=== PATIENT | male | born 1985 | race Caucasian/White ===

== ENCOUNTER 2018-02-16 15:39 | Emergency (ER) | payer BC, OTHER ==
--- NOTE | 2018-02-16 16:03 | EDM.PDOC ---
ED HPI GENERAL MEDICAL PROBLEM - General Chief Complaint: Genitourinary Problem Stated Complaint: MEDICAL CLEARANCE Time Seen by Provider: 02/16/18 16:00 Source of Information: Reports: Patient History Limitations: Reports: No Limitations - History of Present Illness INITIAL COMMENTS - FREE TEXT/NARRATIVE: HISTORY AND PHYSICAL: History of present illness: Patient is a 32-year-old male accompanied by global chief experience officer herewith complaint of testicular swelling and blood in his urine. He states he had a left inguinal hernia repair that became infected 2 years ago requiring a revision. He reports his symptoms are similar to then. He states he has had the testicular swelling and pain on the left side of his back on and off for the past week. He states he's had tactile fevers and chills. He denies any nausea, vomiting, diarrhea. Patient is sexually active. Review of systems: As per history of present illness and below otherwise all systems reviewed and negative. Past medical history: As per history of present illness and as reviewed below otherwise noncontributory. Surgical history: As per history of present illness and as reviewed below otherwise noncontributory. Social history: No reported history of drug or alcohol abuse. Family history: As per history of present illness and as reviewed below otherwise noncontributory. Physical exam: General: Patient sitting comfortably in no acute distress and nontoxic appearing HEENT: Atraumatic, normocephalic, pupils reactive, negative for conjunctival pallor or scleral icterus, mucous membranes moist, throat clear, neck supple, nontender, trachea midline. No meningeal signs. Lungs: Clear to auscultation, breath sounds equal bilaterally, chest nontender. Heart: S1S2, regular, negative for clicks, rubs, or overt murmur. Abdomen: Soft, nondistended, nontender. Negative for masses or hepatosplenomegaly. Negative for costovertebral tenderness. Pelvis: Stable nontender. Genitourinary: pain to palpation of left testicle and left inguinal area. Minimal swelling of the left testicle. No erythema or warmth. Normal cremaster reflex. Rectal: Deferred. Extremities: Atraumatic, negative for cords or calf pain. Neurovascular unremarkable. Neuro: Awake, alert, oriented. Cranial nerves II through XII unremarkable. Cerebellum unremarkable. Motor and sensory unremarkable throughout. Exam nonfocal. Notes: Diagnostics: CBC, CMP, UA, UC, Scrotal US Therapeutics: Ceftriaxone 250mg IM Prescriptions: Doxycycline 100mg BID Impression: Left testicular pain and swelling, possible epididymo-orchitis Plan: 1. Take antibiotic as directed 2. Follow up with urology or primary care provider 3. Return to ED as needed as discussed Definitive disposition and diagnosis as appropriate pending reevaluation and review of above. left testicle Pain Score (Numeric/FACES): 6 - Related Data Allergies Allergy/AdvReac Type Severity Reaction Status Date / Time No Known Allergies Allergy Verified 02/16/18 15:47 Home Meds: Home Meds Doxycycline [Vibramycin] 100 mg PO BID 10 Days #20 tab 02/16/18 [Rx] Past Medical History - Past Health History Medical/Surgical History: Denies Medical/Surgical History Neurological History: Reports: Seizure - Past Surgical History GI Surgical History: Reports: Hernia, Inguinal Other GI Surgeries/Procedures: Inguinal hernia revision Social & Family History - Family History Family Medical History: Noncontributory Oncologic: Reports: Breast, Other (See Below) Other Oncologic Family History: Testicular - Tobacco Use Smoking Status *Q: Current Every Day Smoker Years of Tobacco use: 5 Packs/Tins Daily: 0.5 - Caffeine Use Caffeine Use: Reports: Soda - Alcohol Use Days Per Week of Alcohol Use: 2 Number of Drinks Per Day: 2 Total Drinks Per Week: 4 - Recreational Drug Use Recreational Drug Use: Yes Drug Use in Last 12 Months: No Recreational Drug Type: Reports: Marijuana/Hashish Recreational Drug Use Frequency: Socially ED ROS GENERAL - Review of Systems Review Of Systems: ROS reveals no pertinent complaints other than HPI. ED EXAM, GI/ABD - Physical Exam Exam: See Below (see dictation) Course - Vital Signs Last Recorded V/S: Last Vital Signs Temp 36.6 C 02/16/18 15:45 Pulse 73 02/16/18 15:45 Resp 16 02/16/18 15:45 BP 134/91 H 02/16/18 15:45 Pulse Ox 96 02/16/18 15:45 - Orders/Labs/Meds Orders: Active Orders 24 hr Category Date Time Status Scrotal Duplex Ltd [US] Routine Exams 02/16/18 Taken Testicular US [Scrotum and Contents] [US] Stat Exams 02/16/18 16:11 Taken CHLAMYDIA AND GONORRHEA BY TMA Stat Lab 09/25/18 17:19 Ordered CULTURE URINE [RM] Stat Lab 02/16/18 17:00 Received Labs: Laboratory Tests 02/16/18 02/16/18 02/16/18 Range/Units 16:22 16:22 17:00 WBC 10.94 (4.0-11.0) K/uL RBC 5.38 (4.50-5.90) M/uL Hgb 16.2 (13.0-17.0) g/dL Hct 47.0 (38.0-50.0) % MCV 87.4 (80.0-98.0) fL MCH 30.1 (27.0-32.0) pg MCHC 34.5 (31.0-37.0) g/dL RDW Std Deviation 41.2 (28.0-62.0) fl RDW Coeff of Malini 13 (11.0-15.0) % Plt Count 317 (150-400) K/uL MPV 9.60 (7.40-12.00) fL Neut % (Auto) 69.8 (48.0-80.0) % Lymph % (Auto) 21.0 (16.0-40.0) % [place] % (Auto) 7.5 (0.0-15.0) % Eos % (Auto) 1.2 (0.0-7.0) % Baso % (Auto) 0.5 (0.0-1.5) % Neut # (Auto) 7.6 H (1.4-5.7) K/uL Lymph # (Auto) 2.3 (0.6-2.4) K/uL [place] # (Auto) 0.8 (0.0-0.8) K/uL Eos # (Auto) 0.1 (0.0-0.7) K/uL Baso # (Auto) 0.1 (0.0-0.1) K/uL Nucleated RBC % 0.0 /100WBC Nucleated RBCs # 0 K/uL Sodium 137 (136-148) mmol/L Potassium 4.5 (3.5-5.1) mmol/L Chloride 102 (98-107) mmol/L Carbon Dioxide 28.0 (21.0-32.0) mmol/L BUN 17 (7.0-18.0) mg/dL Creatinine 0.9 (0.8-1.3) mg/dL Est Cr Clr Drug Dosing 116.25 mL/min Estimated GFR (MDRD) > 60.0 ml/min Glucose 98 (74-106) mg/dL Calcium 9.1 (8.5-10.1) mg/dL Total Bilirubin 0.3 (0.2-1.0) mg/dL AST 16 (15-37) IU/L ALT 24 (14-63) IU/L Alkaline Phosphatase 68 (46-116) U/L Total Protein 7.4 (6.4-8.2) g/dL Albumin 3.8 (3.4-5.0) g/dL Globulin 3.6 H (2.0-3.5) g/dL Albumin/Globulin Ratio 1.1 L (1.3-2.8) Urine Color YELLOW Urine Appearance CLEAR Urine pH 6.0 (5.0-8.0) Ur Specific [place] >= 1.030 (1.001-1.035) Urine Protein NEGATIVE (NEGATIVE) mg/dL Urine Glucose (UA) NEGATIVE (NEGATIVE) mg/dL Urine Ketones NEGATIVE (NEGATIVE) mg/dL Urine Occult Blood NEGATIVE (NEGATIVE) Urine Nitrite NEGATIVE (NEGATIVE) Urine Bilirubin NEGATIVE (NEGATIVE) Urine Urobilinogen 0.2 (<2.0) EU/dL Ur Leukocyte Esterase NEGATIVE (NEGATIVE) Urine RBC 0-1 (0-2/HPF) Urine WBC 0-1 (0-5/HPF) Ur Epithelial Cells RARE (NONE-FEW) Urine Bacteria RARE (NEGATIVE) Departure - Departure Time of Disposition: 17:56 Disposition: Home, Self-Care 01 Condition: Good Clinical Impression: Testicular pain, left, Epididymo-orchitis, acute - Discharge Information Referrals: PCP,None [Primary Care Provider] - Forms: ED Department Discharge Additional Instructions: The following information is given to patients seen in the emergency department who are being discharged to home. This information is to outline your options for follow-up care. We provide all patients seen in our emergency department with a follow-up referral. The need for follow-up, as well as the timing and circumstances, are variable depending upon the specifics of your emergency department visit. If you don't have a primary care physician on staff, we will provide you with a referral. We always advise you to contact your personal physician following an emergency department visit to inform them of the circumstance of the visit and for follow-up with them and/or the need for any referrals to a consulting specialist. The emergency department will also refer you to a specialist when appropriate. This referral assures that you have the opportunity for follow-up care with a specialist. All of these measure are taken in an effort to provide you with optimal care, which includes your follow-up. Under all circumstances we always encourage you to contact your private physician who remains a resource for coordinating your care. When calling for follow-up care, please make the office aware that this follow-up is from your recent emergency room visit. If for any reason you are refused follow-up, please contact the [facility] Emergency Department at and asked to speak to the emergency department charge nurse. [facility] - Urology [address] [place] [id number] [facility] [address] [place] [id number] 1. Take antibiotic as directed 2. Follow up with urology or primary care provider 3. Return to ED as needed as discussed - My Orders Last 24 Hours: My Active Orders 02/16/18 16:11 Testicular US [Scrotum and Contents] [US] Stat 02/16/18 17:00 CULTURE URINE [RM] Stat 02/16/18 17:19 CHLAMYDIA AND GONORRHEA BY TMA Stat - Assessment/Plan Last 24 Hours: My Active Orders 02/16/18 16:11 Testicular US [Scrotum and Contents] [US] Stat 02/16/18 17:00 CULTURE URINE [RM] Stat 02/16/18 17:19 CHLAMYDIA AND GONORRHEA BY TMA Stat
[2018-02-16 16:48] LABS: CHLORIDE,CL 102 mmol/L (98-107); SODIUM,NA 137 mmol/L (136-148)
[2018-02-16] MEDS ORDERED: cefTRIAXone 250 MG in Lidocaine 1% 0.9 ML IM ONE (17:52)
--- NOTE | 2018-02-17 09:35 | US ---
EXAM DATE: 02/16/18 PATIENT'S AGE: 32 Patient: JAIME CRAMER Facility: [place], [place] Site . Site : 1985 Study: US Testicle Bilateral [id number]/25/2018 4:57:24 PM Ordering Physician: Doctor Kee Final Report: INDICATION: Left testicular pain TECHNIQUE: Ultrasound of the scrotum and contents. Sonographic nguyen scale images were obtained with spectral and color Doppler waveform and spectral waveform analysis of the testicles. COMPARISON: FINDINGS: Right testicle: 3.4 x 1.6 x 2.6 cm. Normal echotexture. No masses. Microlithiasis. Normal arterial and venous blood flow using Doppler and spectral waveform analysis. Left testicle: 3.9 x 1.9 x 2.5 cm. Normal echotexture. No masses. Microlithiasis. Normal arterial and venous blood flow using Doppler and spectral waveform analysis. Epididymis: Unremarkable bilaterally. Normal blood flow. Other: No sign of hydrocele. scrotal wall is normal. IMPRESSION: Bilateral testicular microlithiasis. Recommend followup in 6 months. No masses or torsion. No hydroceles Dictated by Kian Cuba MD @ Feb 16 2018 5:31PM (Electronic Signature) Report Signed by Proxy. MIKAL
--- NOTE | 2018-02-17 09:35 | US ---
EXAM DATE: 02/16/18 PATIENT'S AGE: 32 Patient: JAIME CRAMER Facility: [place], [place] Site . Site : 1985 Study: US Testicle Bilateral [id number]/25/2018 4:57:24 PM Ordering Physician: Doctor Kee Final Report: INDICATION: Left testicular pain TECHNIQUE: Ultrasound of the scrotum and contents. Sonographic nguyen scale images were obtained with spectral and color Doppler waveform and spectral waveform analysis of the testicles. COMPARISON: FINDINGS: Right testicle: 3.4 x 1.6 x 2.6 cm. Normal echotexture. No masses. Microlithiasis. Normal arterial and venous blood flow using Doppler and spectral waveform analysis. Left testicle: 3.9 x 1.9 x 2.5 cm. Normal echotexture. No masses. Microlithiasis. Normal arterial and venous blood flow using Doppler and spectral waveform analysis. Epididymis: Unremarkable bilaterally. Normal blood flow. Other: No sign of hydrocele. scrotal wall is normal. IMPRESSION: Bilateral testicular microlithiasis. Recommend followup in 6 months. No masses or torsion. No hydroceles Dictated by Kian Cuab MD @ Feb 16 2018 5:31PM (Electronic Signature) Report Signed by Proxy. MIKAL
== END 2018-02-16 18:35 | disposition home or self-care (01) ==
LOC: MW.ED 15:39
DX: N45.3 Epididymo-orchitis (principal); F17.210 Nicotine dependence, cigarettes, uncomplicated
CPT/HCPCS: 36415; 76870; 80053; 81001; 85025; 87086; 87491; 87591; 93976; 96372; 99284; J0696; 93005

== ENCOUNTER 2018-02-16 20:40 | Emergency (ER) | payer BC ==
--- NOTE | 2018-02-16 21:01 | EDM.PDOC ---
ED HPI GENERAL MEDICAL PROBLEM - General Chief Complaint: General Stated Complaint: LOSS OF CONCNESS Time Seen by Provider: 02/16/18 21:01 Source of Information: Reports: Patient History Limitations: Reports: No Limitations - History of Present Illness INITIAL COMMENTS - FREE TEXT/NARRATIVE: HISTORY AND PHYSICAL: History of present illness: Patient is a 32-year-old male with them by safety security officer with concern of head injury. Patient states that he is unaware exactly what happened. Officer states that they were doing the rounds at about 8:30 and when they got to the cell they found patient face down on the floor. He reports that he and the nurse turned patient over and state he was "out of it" and stiff. They are uncertain how long patient was down. Patient is complaining of a headache now. He denies neck or any other pain. He was seen earlier today regarding a left testicular pain, labs are that time were unremarkable. Patient was given IM ceftriaxone and prescription for doxycycline to treat a presumptive epidiymo- orchitis. Review of systems: As per history of present illness and below otherwise all systems reviewed and negative. Past medical history: As per history of present illness and as reviewed below otherwise noncontributory. Surgical history: As per history of present illness and as reviewed below otherwise noncontributory. Social history: No reported history of drug or alcohol abuse. Family history: As per history of present illness and as reviewed below otherwise noncontributory. Physical exam: General: Patient sitting comfortably in no acute distress and nontoxic appearing HEENT: Atraumatic, normocephalic, pupils reactive, negative for conjunctival pallor or scleral icterus, mucous membranes moist, throat clear, neck supple, nontender, trachea midline. No meningeal signs. Lungs: Clear to auscultation, breath sounds equal bilaterally, chest nontender. Heart: S1S2, regular, negative for clicks, rubs, or overt murmur. Abdomen: Soft, nondistended, nontender. Negative for masses or hepatosplenomegaly. Negative for costovertebral tenderness. Pelvis: Stable nontender. Genitourinary: Deferred. Rectal: Deferred. Extremities: Atraumatic, negative for cords or calf pain. Neurovascular unremarkable. Neuro: Awake, alert, oriented. Cranial nerves II through XII unremarkable. Cerebellum unremarkable. Motor and sensory unremarkable throughout. Exam nonfocal. Notes: Diagnostics: Head and cervical spine CT Therapeutics: None Prescriptions: Impression: Head injury, concussion Plan: 1. Motrin or tylenol as needed for headache 2. Follow up with primary care provider 3. Return to ED as needed as discussed Definitive disposition and diagnosis as appropriate pending reevaluation and review of above. Treatments EPIC PRELUDE ANALYST: Reports: Cervical Collar, Spinal Immobilization head Pain Score (Numeric/FACES): 7 - Related Data Allergies Allergy/AdvReac Type Severity Reaction Status Date / Time No Known Allergies Allergy Verified 02/16/18 20:50 Home Meds: Home Meds Doxycycline [Vibramycin] 100 mg PO BID 10 Days #20 tab 02/16/18 [Rx] Past Medical History - Past Health History Medical/Surgical History: Denies Medical/Surgical History Genitourinary History: Reports: Other (See Below) Other Genitourinary History: orchitis Neurological History: Reports: Seizure - Past Surgical History GI Surgical History: Reports: Hernia, Inguinal Other GI Surgeries/Procedures: Inguinal hernia revision Social & Family History - Family History Family Medical History: Noncontributory Oncologic: Reports: Breast, Other (See Below) Other Oncologic Family History: Testicular - Tobacco Use Smoking Status *Q: Current Every Day Smoker Years of Tobacco use: 5 Packs/Tins Daily: 1 - Caffeine Use Caffeine Use: Reports: Soda - Recreational Drug Use Recreational Drug Use: Yes Drug Use in Last 12 Months: No ED ROS GENERAL - Review of Systems Review Of Systems: ROS reveals no pertinent complaints other than HPI. ED EXAM, GENERAL - Physical Exam Exam: See Below (see dictation) Course - Vital Signs Last Recorded V/S: Last Vital Signs Temp 36.9 C 02/16/18 20:46 Pulse 76 02/16/18 20:46 Resp 18 02/16/18 20:46 BP 119/83 02/16/18 20:46 Pulse Ox 97 02/16/18 20:46 - Orders/Labs/Meds Orders: Active Orders 24 hr Category Date Time Status EKG Documentation Completion [RC] STAT Care 02/16/18 20:54 Active Cervical Spine wo Cont [CT] Stat Exams 02/16/18 21:01 Taken Head wo Cont [CT] Stat Exams 02/16/18 21:01 Taken Departure - Departure Time of Disposition: 21:50 Disposition: Home, Self-Care 01 Condition: Good Clinical Impression: Head injury, Concussion - Discharge Information Forms: ED Department Discharge Additional Instructions: The following information is given to patients seen in the emergency department who are being discharged to home. This information is to outline your options for follow-up care. We provide all patients seen in our emergency department with a follow-up referral. The need for follow-up, as well as the timing and circumstances, are variable depending upon the specifics of your emergency department visit. If you don't have a primary care physician on staff, we will provide you with a referral. We always advise you to contact your personal physician following an emergency department visit to inform them of the circumstance of the visit and for follow-up with them and/or the need for any referrals to a consulting specialist. The emergency department will also refer you to a specialist when appropriate. This referral assures that you have the opportunity for follow-up care with a specialist. All of these measure are taken in an effort to provide you with optimal care, which includes your follow-up. Under all circumstances we always encourage you to contact your private physician who remains a resource for coordinating your care. When calling for follow-up care, please make the office aware that this follow-up is from your recent emergency room visit. If for any reason you are refused follow-up, please contact the [facility] Emergency Department at and asked to speak to the emergency department charge nurse. [facility] [address] [place] [address] [place] [address] 1. Motrin or tylenol as needed for headache 2. Follow up with primary care provider 3. Return to ED as needed as discussed - My Orders Last 24 Hours: My Active Orders 02/16/18 21:01 Cervical Spine wo Cont [CT] Stat Head wo Cont [CT] Stat - Assessment/Plan Last 24 Hours: My Active Orders 02/16/18 21:01 Cervical Spine wo Cont [CT] Stat Head wo Cont [CT] Stat
--- NOTE | 2018-02-17 11:19 | CT ---
EXAM DATE: 02/16/18 PATIENT'S AGE: 32 Patient: JAIME CRAMER Facility: [place], [place] Site . Site : 1985 Study: CT Spine Cervical [id number]/25/2018 9:27:55 PM Ordering Physician: Doctor Kee Final Report: INDICATION: Status post fall with loss of consciousness. COMPARISON: None available TECHNIQUE: CT examination of the cervical spine is performed with spiral technique without contrast using spiral technique. 2 mm thick axial, sagittal and coronal reconstructions were made. Please note that all CT scans at this facility use dose modulation, iterative reconstruction, and/or weight-based dosing when appropriate to reduce radiation dose to as low as reasonably achievable. FINDINGS: : There is no sign of fracture or subluxation. The cervical vertebral bodies are normal in height and are in anatomic alignment. There is no sign of prevertebral soft tissue swelling. There is mild disc degenerative disease at C6-7 with moderate anterior osteophyte formation. There is mild bilateral foraminal stenosis at this level from uncovertebral joint hypertrophy. The rest of the cervical intervertebral discs are normal in height. The airway structures are normal in appearance. The visualized skull base is normal in appearance. Brain detail is extremely limited by the use of bone technique, but no gross abnormality is seen. The apices of the lungs are clear. IMPRESSION: NO SIGN OF ACUTE INJURY TO THE CERVICAL SPINE. MILD C6-7 DISC DEGENERATIVE DISEASE. Please note that all CT scans at this facility use dose modulation, iterative reconstruction, and/or weight-based dosing when appropriate to reduce radiation dose to as low as reasonably achievable. Dictated by Rodrigo Escobar MD @ Feb 16 2018 9:42PM (Electronic Signature) Report Signed by Proxy. [facility] MED[facility] CENTERElmira
--- NOTE | 2018-02-17 11:20 | CT ---
EXAM DATE: 02/16/18 PATIENT'S AGE: 32 Patient: JAIME CRAMER Facility: [place], [place] Site . Site : 1985 Study: CT Head [id number]/25/2018 9:30:40 PM Ordering Physician: Doctor Kee Final Report: INDICATION: Fall with loss of consciousness TECHNIQUE: CT head without contrast. COMPARISON: None. FINDINGS: CSF spaces: Within normal limits for age. Brain parenchyma: The nguyen-white differentiation is normal. No sign of mass, hemorrhage, or midline shift. Skull base and calvarium: Dense mucosal thickening is present in the right maxillary sinus. The visualized orbits are grossly unremarkable. No skull fractures. IMPRESSION: No sign of acute injury. There is right maxillary inflammatory sinus disease. Please note that all CT scans at this facility use dose modulation, iterative reconstruction, and/or weight-based dosing when appropriate to reduce radiation dose to as low as reasonably achievable. Dictated by Manuel Higgins MD @ Feb 16 2018 9:31PM (Electronic Signature) Report Signed by Proxy. MTDD
== END 2018-02-16 22:05 | disposition home or self-care (01) ==
LOC: MW.ED 20:40
DX: S06.0X9A Concussion with loss of consciousness of unspecified duration, initial encounter (principal); F17.210 Nicotine dependence, cigarettes, uncomplicated; X58.XXXA Exposure to other specified factors, initial encounter
CPT/HCPCS: 70450; 70450-26; 72125; 72125-26; 99284-25

== ENCOUNTER 2018-02-17 14:01 | Emergency (ER) | payer BC, OTHER ==
--- NOTE | 2018-02-17 14:13 | EDM.PDOC ---
ED HPI GENERAL MEDICAL PROBLEM - General Chief Complaint: Chest Pain Stated Complaint: CHEST PAIN Time Seen by Provider: 02/17/18 14:02 Source of Information: Reports: Patient History Limitations: Reports: No Limitations - History of Present Illness INITIAL COMMENTS - FREE TEXT/NARRATIVE: HISTORY AND PHYSICAL: History of present illness: Patient is a 32-year-old male who presents to the emergency room with complaints of anterior left sided chest pain. He was seen in our emergency room on 2 separate occasions yesterday, 02/16/18, initially for left sided testicular pain and swelling which he was treated with Rocephin and doxycycline (RX). The second ER visit, he stated he had fallen and hit his head. He received a CT scan of head and neck, which was within normal limits and discharged to return with law enforcement. He denies any fever, chills, shortness of breath or cough. Denies any abdominal pain, nausea, vomiting, diarrhea or constipation. NO medical history of health problems. No family history of heart disease. Review of systems: As per history of present illness and below otherwise all systems reviewed and negative. Past medical history: As per history of present illness and as reviewed below otherwise noncontributory. Surgical history: As per history of present illness and as reviewed below otherwise noncontributory. Social history: No reported history of drug or alcohol abuse. Family history: As per history of present illness and as reviewed below otherwise noncontributory. Physical exam: General: Developed and well-nourished 32-year-old male. Alert and oriented. Nontoxic appearing and in no acute distress. HEENT: Atraumatic, normocephalic, pupils equal and reactive bilaterally, negative for conjunctival pallor or scleral icterus, mucous membranes moist, throat clear, neck supple, nontender, trachea midline. No drooling or trismus noted. No meningeal signs Lungs: Clear to auscultation, breath sounds equal bilaterally, chest pain reproducable with palpation of the left upper anterior chest. Heart: S1S2, regular rate and rhythm without overt murmur Abdomen: Soft, nondistended, nontender. Negative for masses or hepatosplenomegaly. Negative for costovertebral tenderness. Pelvis: Stable nontender. Genitourinary: Deferred. Rectal: Deferred. Skin: Intact, warm, dry. No lesions or rashes noted. Extremities: Atraumatic, negative for cords or calf pain. Neurovascular unremarkable. Neuro: Awake, alert, oriented. Cranial nerves II through XII unremarkable. Cerebellum unremarkable. Motor and sensory unremarkable throughout. Exam nonfocal. Notes: EKG shows a sinus rhythm with a rate of 84. As this patient was seen earlier yesterday, Dr. Segura was involved in this case. This case was discussed with him, will do an EKG at this time. VSS. Patient d/c to custody of law enforcement. Diagnostics: EKG Therapeutics: None Prescription: None Impression: Encounter for medical screening Nonspecific Chest Pain Plan: 1. Tylenol and/or ibuprofen as needed for pain management. 2. Follow-up with your primary care provider in the next 1-2 days. Return to the ED as needed and as discussed. Definitive disposition and diagnosis as appropriate pending reevaluation and review of above. Onset: Today Duration: Hour(s): Location: Reports: Chest Middle Chest Pain Score (Numeric/FACES): 6 - Related Data Allergies Allergy/AdvReac Type Severity Reaction Status Date / Time No Known Allergies Allergy Verified 02/16/18 20:50 Home Meds: Home Meds Doxycycline [Vibramycin] 100 mg PO BID 10 Days #20 tab 02/16/18 [Rx] Past Medical History - Past Health History Medical/Surgical History: Denies Medical/Surgical History Genitourinary History: Reports: Other (See Below) Other Genitourinary History: orchitis Neurological History: Reports: Seizure - Past Surgical History GI Surgical History: Reports: Hernia, Inguinal Other GI Surgeries/Procedures: Inguinal hernia revision Social & Family History - Family History Family Medical History: Noncontributory Oncologic: Reports: Breast, Other (See Below) Other Oncologic Family History: Testicular - Caffeine Use Caffeine Use: Reports: Soda ED ROS GENERAL - Review of Systems Review Of Systems: ROS reveals no pertinent complaints other than HPI. ED EXAM, GENERAL - Physical Exam Exam: See Below (See dictation) Course - Vital Signs Last Recorded V/S: Last Vital Signs Temp 98.3 F 02/17/18 14:07 Pulse 67 02/17/18 14:07 Resp 18 02/17/18 14:07 BP 137/86 02/17/18 14:07 Pulse Ox 99 02/17/18 14:07 - Orders/Labs/Meds Orders: Active Orders 24 hr Category Date Time Status EKG Documentation Completion [RC] STAT Care 02/17/18 14:05 Active Departure - Departure Time of Disposition: 14:20 Disposition: Home, Self-Care 01 Clinical Impression: Nonspecific chest pain Instructions: Nonspecific Chest Pain Forms: ED Department Discharge Additional Instructions: The following information is given to patients seen in the emergency department who are being discharged to home. This information is to outline your options for follow-up care. We provide all patients seen in our emergency department with a follow-up referral. The need for follow-up, as well as the timing and circumstances, are variable depending upon the specifics of your emergency department visit. If you don't have a primary care physician on staff, we will provide you with a referral. We always advise you to contact your personal physician following an emergency department visit to inform them of the circumstance of the visit and for follow-up with them and/or the need for any referrals to a consulting specialist. The emergency department will also refer you to a specialist when appropriate. This referral assures that you have the opportunity for follow-up care with a specialist. All of these measure are taken in an effort to provide you with optimal care, which includes your follow-up. Under all circumstances we always encourage you to contact your private physician who remains a resource for coordinating your care. When calling for follow-up care, please make the office aware that this follow-up is from your recent emergency room visit. If for any reason you are refused follow-up, please contact the [facility] Emergency Department at and asked to speak to the emergency department charge nurse. [facility] [address] [place] [id number] 1. Tylenol and/or ibuprofen as needed for pain management. 2. Follow-up with your primary care provider in the next 1-2 days. Return to the ED as needed and as discussed. - My Orders Last 24 Hours: My Active Orders 02/17/18 14:05 EKG Documentation Completion [RC] STAT - Assessment/Plan Last 24 Hours: My Active Orders 02/17/18 14:05 EKG Documentation Completion [RC] STAT
== END 2018-02-17 14:30 | disposition home or self-care (01) ==
LOC: MW.ED 14:01
DX: R07.9 Chest pain, unspecified (principal)
CPT/HCPCS: 93005; 99285-25

== ENCOUNTER 2019-08-27 00:54 | Emergency (ER) | payer SELFPAY ==
[2019-08-27] MEDS ORDERED: Azithromycin 200 MG/5 ML Susp 15 ML Bottle PO ONE (01:55)
--- NOTE | 2019-08-27 01:57 | EDM.PDOC ---
ED HPI GENERAL MEDICAL PROBLEM - General Chief Complaint: General Stated Complaint: MEDICAL CLEARANCE Time Seen by Provider: 08/27/19 01:20 Source of Information: Reports: Patient History Limitations: Reports: No Limitations - History of Present Illness INITIAL COMMENTS - FREE TEXT/NARRATIVE: Patient states that he has been urinating blood. And is here for medical clearance for incarceration Onset: Today Duration: Day(s): Severity: Mild Improves with: Reports: None Worsens with: Reports: None Associated Symptoms: Reports: No Other Symptoms - Related Data Allergies Allergy/AdvReac Type Severity Reaction Status Date / Time No Known Allergies Allergy Verified 08/27/19 01:21 Home Meds: Home Meds Albuterol [Ventolin HFA] 8 gm .XX ASDIRECTED 08/27/19 [History] Past Medical History - Past Health History Medical/Surgical History: Denies Medical/Surgical History HEENT History: Reports: None Cardiovascular History: Reports: None Respiratory History: Reports: Asthma Genitourinary History: Reports: Other (See Below) Other Genitourinary History: orchitis Musculoskeletal History: Reports: None Neurological History: Reports: Seizure Psychiatric History: Reports: None Endocrine/Metabolic History: Reports: None Hematologic History: Reports: None Immunologic History: Reports: None Oncologic (Cancer) History: Reports: None Dermatologic History: Reports: None - Infectious Disease History Infectious Disease History: Reports: None - Past Surgical History Head Surgeries/Procedures: Reports: None GI Surgical History: Reports: Hernia, Inguinal Other GI Surgeries/Procedures: Inguinal hernia revision Social & Family History - Family History Family Medical History: Noncontributory Oncologic: Reports: Breast, Other (See Below) Other Oncologic Family History: Testicular - Tobacco Use Smoking Status *Q: Current Every Day Smoker Years of Tobacco use: 10 Packs/Tins Daily: 1 - Caffeine Use Caffeine Use: Reports: None - Recreational Drug Use Recreational Drug Use: No ED ROS GENERAL - Review of Systems Review Of Systems: See Below Constitutional: Reports: No Symptoms HEENT: Reports: No Symptoms Respiratory: Reports: No Symptoms Cardiovascular: Reports: No Symptoms Endocrine: Reports: No Symptoms GI/Abdominal: Reports: No Symptoms : Reports: No Symptoms Musculoskeletal: Reports: No Symptoms Skin: Reports: No Symptoms Neurological: Reports: No Symptoms Psychiatric: Reports: No Symptoms ED EXAM, GENERAL - Physical Exam Exam: See Below Exam Limited By: No Limitations General Appearance: Alert, WD/WN, No Apparent Distress Eye Exam: Bilateral Eye: Normal Fundi, Normal Inspection Ear Exam: Bilateral Ear: Auricle Normal, Canal Normal Nose: Normal Inspection Throat/Mouth: Normal Inspection Respiratory/Chest: No Respiratory Distress Cardiovascular: Normal Peripheral Pulses (Male) Exam: No Hernia Back Exam: Normal Inspection Extremities: Normal Inspection Neurological: Alert, Oriented, CN II-XII Intact Psychiatric: Normal Affect Skin Exam: Warm Lymphatic: No Adenopathy Course - Vital Signs Text/Narrative:: Patient states he is urinating blood. UA shows no evidence of bleeding. Patient has GC and chlamydia pending. Last Recorded V/S: Last Vital Signs Temp 97.3 F 08/27/19 01:19 Pulse 83 08/27/19 01:19 Resp 18 08/27/19 01:19 BP 131/91 H 08/27/19 01:19 Pulse Ox 95 08/27/19 01:19 - Orders/Labs/Meds Orders: Active Orders 24 hr Category Date Time Status CHLAMYDIA AND GONORRHEA BY TMA Stat Lab 08/27/19 01:29 Ordered CULTURE URINE [RM] Stat Lab 08/27/19 01:30 Received Labs: Laboratory Tests 08/27/19 Range/Units 01:30 Urine Color YELLOW Urine Appearance SLT CLOUDY Urine pH 6.0 (5.0-8.0) Ur Specific Griffith >= 1.030 (1.001-1.035) Urine Protein 30 H (NEGATIVE) mg/dL Urine Glucose (UA) NEGATIVE (NEGATIVE) mg/dL Urine Ketones TRACE H (NEGATIVE) mg/dL Urine Occult Blood NEGATIVE (NEGATIVE) Urine Nitrite NEGATIVE (NEGATIVE) Urine Bilirubin SMALL H (NEGATIVE) Urine Ictotest NEGATIVE Urine Urobilinogen 0.2 (<2.0) EU/dL Ur Leukocyte Esterase TRACE H (NEGATIVE) Urine RBC 0-2 (0-2/HPF) Urine WBC 20-30 (0-5/HPF) Ur Epithelial Cells RARE (NONE-FEW) Urine Bacteria FEW (NEGATIVE) Urine Mucus LIGHT (NONE-MOD) Departure - Departure Time of Disposition: 01:53 Disposition: Home, Self-Care 01 Clinical Impression: Sexually transmitted disease (STD) - Discharge Information Referrals: PCP,None [Primary Care Provider] - Sepsis Event Note - Evaluation Sepsis Screening Result: No Definite Risk - Focused Exam Vital Signs: Vital Signs Temp Pulse Resp BP Pulse Ox 08/27/19 01:19 97.3 F 83 18 131/91 H 95 Date Exam was Performed: 08/27/19 Time Exam was Performed: 01:51 - My Orders Last 24 Hours: My Active Orders 08/27/19 01:29 CHLAMYDIA AND GONORRHEA BY TMA Stat 08/27/19 01:30 CULTURE URINE [RM] Stat - Assessment/Plan Last 24 Hours: My Active Orders 08/27/19 01:29 CHLAMYDIA AND GONORRHEA BY TMA Stat 08/27/19 01:30 CULTURE URINE [RM] Stat
[2019-08-27] MEDS ORDERED: Azithromycin 250 MG Tab ONE (02:07)
[2019-08-27] MEDS ORDERED: Azithromycin 250 MG Tab PO STA (02:07)
== END 2019-08-27 02:20 ==
LOC: MW.ED 00:54
DX: A64 Unspecified sexually transmitted disease (principal); F17.210 Nicotine dependence, cigarettes, uncomplicated
CPT/HCPCS: 81001; 87086; 87491; 87591; 99283; A9270

== ENCOUNTER 2020-08-17 01:17 | Emergency (ER) | payer OTHER ==
[2020-08-17] MEDS ORDERED: Ketorolac 30 MG/ML SDV IM ONE (01:32)
--- NOTE | 2020-08-17 01:36 | EDM.PDOC ---
ED HPI GENERAL MEDICAL PROBLEM - General Chief Complaint: Lower Extremity Injury/Pain Stated Complaint: SWELLING IN LEFT LEG Time Seen by Provider: 08/17/20 01:22 - History of Present Illness INITIAL COMMENTS - FREE TEXT/NARRATIVE: HISTORY AND PHYSICAL: History of present illness: This is a 34-year-old healthy gentleman who presents ER today complaining of pain to his left upper thigh x1 month. Patient reports that he has been incarcerated for 1 week. Patient reports that since being incarcerated the pain is worsened. Patient reports he has been taking ibuprofen and resting it in senior living without any significant improvement. Patient denies any recent fevers, shakes, chills, nausea, vomiting, diarrhea, dysuria, frequency, urgency. Patient denies any new trauma. Patient reports no heavy lifting or increased exercise while i ncarcerated. Review of systems: As per history of present illness and below otherwise all systems reviewed and negative. Past medical history: As per history of present illness and as reviewed below otherwise noncontributory. Surgical history: As per history of present illness and as reviewed below otherwise noncontributory. Social history: No reported history of drug or alcohol abuse. Family history: As per history of present illness and as reviewed below otherwise noncontributory. Physical exam: This patient was seen and evaluated during the 2019 SARS-CoV-2 novel coronavirus pandemic period. Community viral transmission is ongoing at time of this encounter and the emergency department is operating under pandemic response procedures. Constitutional: Patient is oriented to person, place, and time. Appears well- developed and well-nourished. No distress. HEENT: Moist mucous membranes Head: Normocephalic and atraumatic Eyes: Right eye exhibits no discharge. Left eye exhibits no discharge. No scleral icterus Neck: Normal range of motion. No tracheal deviation present. Cardiovascular: Normal rate and regular rhythm. Pulmonary: Effort normal, no respiratory distress. Abdominal: No distention Musculoskeletal: Normal range of motion Neurologic: Alert and oriented to person, place and time. Skin: [place], warm and dry. Psychiatric: Normal mood and affect. Behavior is normal. Judgment and thought content normal. Nursing note and vital signs have been reviewed Patient's ER physical exam is essentially normal. I do not palpate any abnormalities in his upper thigh. I do not palpate any swelling or identify any ecchymosis in that region. Patient is tender to palpation in the upper volar mid thigh region and a 1 cm distribution. Assessment and plan: Is a 34-year-old gentleman who presents ER today with left upper thigh pain. Pain appears to be musculoskeletal in nature. Patient be given Toradol IM here in the ED and will be instructed to continue utilizing the ibuprofen, ice, rest and elevation. Reassessment at the time of disposition demonstrates that the patient is in no acute distress. The patient has remained stable throughout the entire ED visit and is without objective evidence for acute process requiring urgent intervention or hospitalization. The patient is stable for discharge, counseling is provided as documented above, discussed symptomatic treatment and specific conditions for return. I have spoken with the patient/caregiver and discussed todays findings, in addition to providing specific details for the plan of care. Questions are answered and there is agreement with the plan. Definitive disposition and diagnosis as appropriate pending reevaluation and review of above. - Related Data Allergies Allergy/AdvReac Type Severity Reaction Status Date / Time No Known Allergies Allergy Verified 08/17/20 01:26 Home Meds: Home Meds Albuterol [Ventolin HFA] 8 gm .XX ASDIRECTED 08/27/19 [History] Past Medical History - Past Health History Medical/Surgical History: Denies Medical/Surgical History HEENT History: Reports: None Cardiovascular History: Reports: None Respiratory History: Reports: Asthma Genitourinary History: Reports: Other (See Below) Other Genitourinary History: orchitis Musculoskeletal History: Reports: None Neurological History: Reports: Seizure Psychiatric History: Reports: None Endocrine/Metabolic History: Reports: None Hematologic History: Reports: None Immunologic History: Reports: None Oncologic (Cancer) History: Reports: None Dermatologic History: Reports: None - Infectious Disease History Infectious Disease History: Reports: None - Past Surgical History Head Surgeries/Procedures: Reports: None GI Surgical History: Reports: Hernia, Inguinal Other GI Surgeries/Procedures: Inguinal hernia revision Social & Family History - Family History Family Medical History: No Pertinent Family History Oncologic: Reports: Breast, Other (See Below) Other Oncologic Family History: Testicular - Caffeine Use Caffeine Use: Reports: None Review of Systems - Review of Systems Review Of Systems: See Below ED EXAM, GENERAL - Physical Exam Exam: See Below Course - Vital Signs Last Recorded V/S: Last Vital Signs Temp 99.0 F 08/17/20 01:27 Pulse 105 H 08/17/20 01:27 Resp 18 08/17/20 01:27 BP 147/77 H 08/17/20 01:27 Pulse Ox 96 08/17/20 01:27 - Orders/Labs/Meds Orders: Active Orders 24 hr Category Date Time Status Ketorolac [Toradol] Med 08/17/20 01:32 Once 30 mg IM ONETIME ONE Departure - Departure Time of Disposition: 01:35 Disposition: Home, Self-Care 01 Condition: Good Clinical Impression: Musculoskeletal pain of extremity - Discharge Information Instructions: Muscle Strain, [id number] Referrals: Ashvin Cote MD [Primary Care Provider] - Additional Instructions: Your seen and evaluated the ER today secondary to pain to your left thigh. You were given a injection of Toradol in the ER to help with pain and inflammation. Continue using the ibuprofen that you have been given. You should rest it as much as you can, keep it elevated. The following information is given to patients seen in the emergency department who are being discharged to home. This information is to outline your options for follow-up care. We provide all patients seen in our emergency department with a follow-up referral. The need for follow-up, as well as the timing and circumstances, are variable depending upon the specifics of your emergency department visit. If you don't have a primary care physician on staff, we will provide you with a referral. We always advise you to contact your personal physician following an emergency department visit to inform them of the circumstance of the visit and for follow-up with them and/or the need for any referrals to a consulting specialist. The emergency department will also refer you to a specialist when appropriate. This referral assures that you have the opportunity for follow-up care with a specialist. All of these measure are taken in an effort to provide you with optimal care, which includes your follow-up. Under all circumstances we always encourage you to contact your private physician who remains a resource for coordinating your care. When calling for follow-up care, please make the office aware that this follow-up is from your recent emergency room visit. If for any reason you are refused follow-up, please contact the [facility] Emergency Department at and asked to speak to the emergency department charge nurse. [facility] - Primary Care [address] [place] [id number] [facility] [address] [place] [id number] Sepsis Event Note (ED) - Evaluation Sepsis Screening Result: No Definite Risk - Focused Exam Vital Signs: Vital Signs Temp Pulse Resp BP Pulse Ox 08/17/20 01:27 99.0 F 105 H 18 147/77 H 96 - My Orders Last 24 Hours: My Active Orders 08/17/20 01:32 Ketorolac [Toradol] 30 mg IM ONETIME ONE - Assessment/Plan Last 24 Hours: My Active Orders 08/17/20 01:32 Ketorolac [Toradol] 30 mg IM ONETIME ONE
== END 2020-08-17 01:45 | disposition home or self-care (01) ==
LOC: MW.ED 01:17
DX: M79.652 Pain in left thigh (principal); J45.909 Unspecified asthma, uncomplicated; Z79.899 Other long term (current) drug therapy
CPT/HCPCS: 96372; 99283; J1885; 99282

== ENCOUNTER 2021-05-31 16:49 | Emergency (ER) | payer SELFPAY ==
--- NOTE | 2021-05-31 18:07 | EDM.PDOC ---
ED HPI GENERAL MEDICAL PROBLEM - General Chief Complaint: General Stated Complaint: MEDICAL CLEARANCE Time Seen by Provider: 05/31/21 17:27 Source of Information: Reports: Patient History Limitations: Reports: No Limitations - History of Present Illness INITIAL COMMENTS - FREE TEXT/NARRATIVE: HISTORY AND PHYSICAL: History of present illness: Patient is a 35-year-old male who presents to the emergency room with law enforcement for medication refill. Patient uses a ProAir inhaler, currently out of this. He offers no complaints or concerns. Patient denies any fever, chills, headache, change in vision, syncope or near syncope. Denies any chest pain, back pain, shortness of breath or cough. Denies any GI or symptoms. Patient has been eating and drinking appropriately. Review of systems: As per history of present illness and below otherwise all systems reviewed and negative. Past medical history: As per history of present illness and as reviewed below otherwise n oncontributory. Surgical history: As per history of present illness and as reviewed below otherwise noncontributory. Social history: See social history for further information Family history: As per history of present illness and as reviewed below otherwise noncontributory. Physical exam: General: Well developed and well nourished. Alert and orientated x 3. Answering questions appropriately. Nontoxic in appearance and in no acute distress. Vital signs are stable and have been reviewed by me. Nursing notes were reviewed. Accompanied by law enforcement. HEENT: Atraumatic, normocephalic, pupils equal and reactive bilaterally, negative for conjunctival pallor or scleral icterus, mucous membranes moist, trachea midline. No drooling or trismus noted. No meningeal signs. No hot potato voice noted. Lungs: Clear to auscultation, breath sounds equal bilaterally. Normal work of breathing, no accessory muscles used. Heart: S1S2, regular rate and rhythm without overt murmur Abdomen: Soft, nondistended, nontender. Negative for masses or costovertebral tenderness. Skin: Intact, warm, dry. No lesions or rashes noted. Hematologic: No petechiae or purpra. Mucosa appropriate color and normal nail bed color and refill. Extremities: Ambulatory, moves all extremities per self without difficulty or deficits. Neurovascular unremarkable. Neuro: Awake, alert, oriented. Cranial nerves II through XII unremarkable. Cerebellum unremarkable. Motor and sensory unremarkable throughout. Exam nonfocal. Psychiatric: Mood and affect are appropriate. Normal thought process. Answering questions appropriately. Please note that the patient was seen and evaluated during the 2019 SARS-CoV-2 novel coronavirus pandemic period. Community viral transmission is ongoing at time of this encounter and the emergency department is operating under pandemic response procedures. Medical Decision Making: Law enforcement has no specific concerns for today's ER visit. I have talked with the patient and principal law clerk about today's ER visit, in addition to providing specific details for plan of care. Reassessment at the time of disposition demonstrates that the patient is in no acute distress. The patient is stable for discharge, counseling was provided and we discussed in great detail signs and symptoms that would prompt them to return to the Emergency Department. Medication, follow up and supportive care measures were reviewed and discussed. Voices understanding and is agreeable to plan of care. Denies any further questions or concerns at this time. Diagnostics: None Therapeutics: None Prescription: None Impression: Encounter for medical screening Encounter for medication refill Plan: 1. Today your physical exam and vital signs are within normal limits. 2. We encourage you to follow up with your primary care provider and/or recommended specialist in the next few days for re-evaluation and further care/management. 3. If you should develop symptoms or feel the need to be evaluated in the emergency department - please feel free to return or call 911 if necessary. Definitive disposition and diagnosis as appropriate pending reevaluation and review of above. - Related Data Allergies Allergy/AdvReac Type Severity Reaction Status Date / Time No Known Allergies Allergy Verified 05/31/21 17:21 Home Meds: Home Meds Albuterol [Ventolin HFA] 8 gm .XX ASDIRECTED 08/27/19 [History] Past Medical History - Past Health History Medical/Surgical History: Denies Medical/Surgical History HEENT History: Reports: None Cardiovascular History: Reports: None Respiratory History: Reports: Asthma Genitourinary History: Reports: Other (See Below) Other Genitourinary History: orchitis Musculoskeletal History: Reports: None Neurological History: Reports: Seizure Psychiatric History: Reports: None Endocrine/Metabolic History: Reports: None Hematologic History: Reports: None Immunologic History: Reports: None Oncologic (Cancer) History: Reports: None Dermatologic History: Reports: None - Infectious Disease History Infectious Disease History: Reports: None - Past Surgical History Head Surgeries/Procedures: Reports: None GI Surgical History: Reports: Hernia, Inguinal Other GI Surgeries/Procedures: Inguinal hernia revision Social & Family History - Family History Family Medical History: No Pertinent Family History Oncologic: Reports: Breast, Other (See Below) Other Oncologic Family History: Testicular - Tobacco Use Second Hand Smoke Exposure: No - Caffeine Use Caffeine Use: Reports: None - Recreational Drug Use Recreational Drug Use: No ED ROS GENERAL - Review of Systems Review Of Systems: Comprehensive ROS is negative, except as noted in HPI. ED EXAM, GENERAL - Physical Exam Exam: See Below (See dictation) Course - Vital Signs Last Recorded V/S: Last Vital Signs Temp 98.1 F 05/31/21 17:17 Pulse 84 05/31/21 17:17 Resp 20 05/31/21 17:17 BP 138/92 H 05/31/21 17:17 Pulse Ox 98 05/31/21 17:17 Departure - Departure Time of Disposition: 18:06 Disposition: Home, Self-Care 01 Clinical Impression: Encounter for medication refill, Encounter for medical screening examination - Discharge Information Instructions: Medicine Refill at the Emergency Department Additional Instructions: The following information is given to patients seen in the emergency department who are being discharged to home. This information is to outline your options for follow-up care. We provide all patients seen in our emergency department with a follow-up referral. The need for follow-up, as well as the timing and circumstances, are variable depending upon the specifics of your emergency department visit. If you don't have a primary care physician on staff, we will provide you with a referral. We always advise you to contact your personal physician following an emergency department visit to inform them of the circumstance of the visit and for follow-up with them and/or the need for any referrals to a consulting specia list. The emergency department will also refer you to a specialist when appropriate. This referral assures that you have the opportunity for follow-up care with a specialist. All of these measure are taken in an effort to provide you with optimal care, which includes your follow-up. Under all circumstances we always encourage you to contact your private physician who remains a resource for coordinating your care. When calling for follow-up care, please make the office aware that this follow-up is from your recent emergency room visit. If for any reason you are refused follow-up, please contact the [facility] Emergency Department at and asked to speak to the emergency department charge nurse. [facility] [address] [place] [address] [facility] [address] [place] [address] Thank you for choosing the [facility] emergency department in [place] for your medical needs today. It was a pleasure caring for you. Today you were seen in the emergency department for medication refill 1. Today your physical exam and vital signs are within normal limits. 2. We encourage you to follow up with your primary care provider and/or rec ommended specialist in the next few days for re-evaluation and further care/management. 3. If you should develop symptoms or feel the need to be evaluated in the emergency department - please feel free to return or call 911 if necessary. Sepsis Event Note (ED) - Evaluation Sepsis Screening Result: No Definite Risk - Focused Exam Vital Signs: Vital Signs Temp Pulse Resp BP Pulse Ox 05/31/21 17:17 98.1 F 84 20 138/92 H 98
== END 2021-05-31 18:10 | disposition home or self-care (01) ==
LOC: MW.ED 16:49
DX: Z02.89 Encounter for other administrative examinations (principal); J45.909 Unspecified asthma, uncomplicated; Z76.0 Encounter for issue of repeat prescription
CPT/HCPCS: 99282

== ENCOUNTER 2022-12-09 01:39 | Emergency (ER) | payer MEDICAID ==
[2022-12-09] MEDS ORDERED: Albuterol 8 GM Inhaler INH ONE (02:41)
== END 2022-12-09 03:15 ==
LOC: MW.ED 01:39
DX: J45.909 Unspecified asthma, uncomplicated (principal)
CPT/HCPCS: 99283; A9270

== ENCOUNTER 2023-12-16 14:03 | Emergency (ER) | payer MEDICAID ==
[2023-12-16] MEDS: predniSONE 20 MG Tab PO ONE (17:03)
[2023-12-16] MEDS: Amoxicillin/Clavulanate K 875-125 MG Tab PO STA (17:03)
== END 2023-12-16 19:05 ==
LOC: MW.ED 14:03
DX: R22.9 Localized swelling, mass and lump, unspecified (principal); J45.909 Unspecified asthma, uncomplicated; F17.210 Nicotine dependence, cigarettes, uncomplicated; Z75.8 Other problems related to medical facilities and other health care
CPT/HCPCS: 99283; A9270

== ENCOUNTER 2024-04-30 10:31 | Emergency (ER) | payer MEDICAID ==
[2024-04-30] MEDS: Ibuprofen 600 MG Tab PO ONE (11:23)
== END 2024-04-30 14:15 ==
LOC: MW.ED 10:31
DX: Z02.89 Encounter for other administrative examinations (principal); M25.562 Pain in left knee; Z76.0 Encounter for issue of repeat prescription; J45.909 Unspecified asthma, uncomplicated; F17.210 Nicotine dependence, cigarettes, uncomplicated; Z79.51 Long term (current) use of inhaled steroids; Z75.8 Other problems related to medical facilities and other health care
CPT/HCPCS: 73552; 73560; 93971; 99284; A9270